=== PATIENT | female | born 1985 | race Caucasian/White ===

== ENCOUNTER 2019-07-13 13:43 | Emergency (ER) | payer MEDICAID, OTHER ==
--- NOTE | 2019-07-13 14:12 | NUR ---
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
[2019-07-13] MEDS ORDERED: SODIUM CHLORIDE FLUSH 10ML SYR IVF ONE (15:00)
[2019-07-13 15:02] LABS: BASOPHILS # (AUTO) 0.08 x10^3/uL (0-0.1); BASOPHILS % (AUTO) 1 % (0-1); EOSINOPHILS # (AUTO) 0.12 x10^3/uL (0-0.4); EOSINOPHILS % (AUTO) 1 % (1-7); LYMPHOCYTES # (AUTO) 1.18 x10^3/uL (1-3.4); LYMPHOCYTES % (AUTO) 10 % (22-44); MD NO; MEAN CORPUSCULAR HEMOGLOBIN 29.6 pg (27.0-34.8); MEAN CORPUSCULAR HGB CONC 33.7 g/dL (32.4-35.8); MEAN CORPUSCULAR VOLUME 87.9 fL (80-100); MEAN PLATELET VOLUME 8.9 fL (7.4-10.4); MONOCYTES # (AUTO) 0.58 x10^3/uL (0.2-0.8); MONOCYTES % (AUTO) 5 % (2-9); NEUTROPHILS # (AUTO) 10.25 x10^3/uL (1.8-6.8); NEUTROPHILS % (AUTO) 84 % (42-75); PLATELET COUNT 275 x10^3/uL (130-400); RED BLOOD COUNT 5.08 x10^6/uL (3.82-5.3); RED CELL DISTRIBUTION WIDTH 13.5 % (9.6-15.2)
[2019-07-13 15:14] LABS: ALBUMIN 3.6 g/dL (3.4-5.0); ANION GAP 16 mmol/L (5-15); CALCIUM 8.7 mg/dL (8.5-10.1); CHLORIDE 103 mmol/L (98-107); CREATININE 0.88 mg/dL (0.55-1.02)
--- NOTE | 2019-07-13 15:28 | NUR ---
PIV INITIATED, PT TO GO TO CT.
[2019-07-13] MEDS ORDERED: LIDOCAINE 1%-EPI 1:100K, 20ML ONE (16:29)
[2019-07-13] MEDS ORDERED: AMOXICILLIN/CLAV 875-125MG TABLET PO STA (17:03)
[2019-07-13] MEDS ORDERED: ONDANSETRON ODT 4 MG ONE (17:11)
[2019-07-13] MEDS ORDERED: AMOXICILLIN/CLAV 875-125MG TABLET ONE (17:11)
[2019-07-13 17:27] VITALS: BP 119/75
[2019-07-13] MEDS ORDERED: PLEASE ENTER WEIGHT MC SCH (17:30)
[2019-07-13] MEDS ORDERED: ONDANSETRON ODT 4 MG PO ONE (17:30)
== END 2019-07-13 18:29 | disposition home or self-care (01) ==
LOC: ED 14:23
DX: J36 Peritonsillar abscess (principal); H92.01 Otalgia, right ear; E11.9 Type 2 diabetes mellitus without complications
CPT/HCPCS: 36415; 42700; 70491; 80048; 82040; 85025; 99285

== ENCOUNTER → 2020-02-13 | Outpatient (CLI) | payer OTHER ==
[2020-02-13 09:26] LABS: BASOPHILS % (AUTO) 1 % (0-1); EOSINOPHILS % (AUTO) 2 % (1-7); LYMPHOCYTES % (AUTO) 26 % (22-44); MEAN CORPUSCULAR HEMOGLOBIN 29.2 pg (27.0-34.8); MEAN CORPUSCULAR HGB CONC 32.5 g/dL (32.4-35.8); MEAN PLATELET VOLUME 9.1 fL (7.4-10.4); MONOCYTES % (AUTO) 6 % (2-9); NEUTROPHILS % (AUTO) 64 % (42-75); PLATELET COUNT 240 x10^3/uL (130-400); RED BLOOD COUNT 4.99 x10^6/uL (3.82-5.3); RED CELL DISTRIBUTION WIDTH 12.5 % (9.6-15.2)
[2020-02-13 09:29] LABS: MD NO
[2020-02-13 10:08] LABS: ALBUMIN 3.8 g/dL (3.4-5.0)
[2020-02-13 10:18] LABS: ALKALINE PHOSPHATASE 124 U/L (45-117); ANION GAP 14 mmol/L (5-15); CHLORIDE 108 mmol/L (98-107); CHOL/HDL RATIO 2.9; CHOLESTEROL, TOTAL 196 mg/dL (140-239); CREATININE 0.59 mg/dL (0.55-1.02); HDL CHOL % 35 % (28-40); HDL CHOLESTEROL (DIRECT) 68 mg/dL (40-60); TOTAL PROTEIN 7.6 g/dL (6.4-8.2)
[2020-02-13 10:42] LABS: ALANINE AMINOTRANSFERASE 17 U/L (12-78); BILIRUBIN,TOTAL 0.4 mg/dL (0.2-1.0); FREE T4 (FREE THYROXINE) 1.27 ng/dL (0.76-1.46); LDL CHOLESTEROL,CALCULATED 111 mg/dL (54-169); LDL/HDL RATIO 1.6 (0.5-3.0); TRIGLYCERIDES 86 mg/dL (50-200); VLDL CHOLESTEROL 17 mg/dL (0-25)
== END | disposition home or self-care (01) ==
LOC: LAB 09:04
PROVIDERS: ATTEND Nurse Practitioner Family
DX: Z00.00 Encounter for general adult medical examination without abnormal findings (principal); E28.2 Polycystic ovarian syndrome; H93.19 Tinnitus, unspecified ear; K59.09 Other constipation; K92.1 Melena; R13.11 Dysphagia, oral phase; R42 Dizziness and giddiness; R73.09 Other abnormal glucose
CPT/HCPCS: 36415; 80053; 80061; 82670; 83001; 83002; 83036; 84439; 84443; 85025

== ENCOUNTER 2020-11-22 07:39 | Outpatient (CLI) | payer OTHER ==
[2020-11-22 07:54] LABS: BASOPHILS % (AUTO) 1 % (0-1); EOSINOPHILS % (AUTO) 5 % (1-7); LYMPHOCYTES % (AUTO) 42 % (22-44); MEAN CORPUSCULAR HEMOGLOBIN 28.6 pg (27.0-34.8); MEAN CORPUSCULAR HGB CONC 33.4 g/dL (32.4-35.8); MEAN PLATELET VOLUME 8.3 fL (7.4-10.4); MONOCYTES % (AUTO) 8 % (2-9); NEUTROPHILS % (AUTO) 45 % (42-75); PLATELET COUNT 254 x10^3/uL (130-400); RED BLOOD COUNT 4.73 x10^6/uL (3.82-5.3); RED CELL DISTRIBUTION WIDTH 12.6 % (9.6-15.2)
[2020-11-22 08:07] LABS: ALANINE AMINOTRANSFERASE 19 U/L (12-78); ALBUMIN 3.7 g/dL (3.4-5.0); ANION GAP 5 mmol/L (5-15); CALCIUM 8.8 mg/dL (8.5-10.1); CHLORIDE 103 mmol/L (98-107); CREATININE 0.59 mg/dL (0.55-1.02)
[2020-11-22 08:09] LABS: ALKALINE PHOSPHATASE 98 U/L (45-117); BILIRUBIN,TOTAL 0.3 mg/dL (0.2-1.0); TOTAL PROTEIN 7.4 g/dL (6.4-8.2)
== END 2020-11-22 23:59 | disposition home or self-care (01) ==
LOC: LAB 07:39
PROVIDERS: ATTEND Registered Nurse Medical-Surgical
DX: E11.9 Type 2 diabetes mellitus without complications (principal)
CPT/HCPCS: 36415; 80053; 83036; 85025

== ENCOUNTER 2020-12-05 07:20 | Emergency (ER) | payer OTHER ==
[~2020-12-05] VITALS: Ht 162.6 cm; Wt 67.7 kg
--- NOTE | 2020-12-05 08:56 | NUR ---
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
--- NOTE | 2020-12-05 09:13 | NUR ---
PT AMBULATORY TO ROOM 34 W/ C/O SOB, NAUSEA, AND GEN MALAISE STARTED TODAY AT 0200. PT STATES SHE WAS HAVING TROUB;LE CATCHING HER BREATHE EARLY THIS AM. PT STATES SHE WAS EXPOSED TO COVID FROM A PATIENT AT WORK LAST WEEK. PT STATES SHE IS HERE FOR A COVID TEST AND CXR. PT RESTING ON GURNEY. NADN. MONITORS APPLIED. VSS. WARM BLANKET PROVIDED. CALL LIGHT IN REACH.
[2020-12-05 09:46] LABS: MICROSCOPIC NOT IND
[2020-12-05 10:06] VITALS: BP 109/66
--- NOTE | 2020-12-05 10:06 | NUR ---
PT RESTING ON GURNEY. NADN. GALVEZ.
[2020-12-05 10:14] LABS: RAPID INFLUENZA A Negative (Negative); RAPID INFLUENZA B Negative (Negative)
--- NOTE | 2020-12-05 10:28 | NUR ---
PER ERP DR. CABRERA NO NEED FOR CXR AT THIS TIME.
== END 2020-12-05 11:02 | disposition home or self-care (01) ==
LOC: ED 08:24
DX: M54.5 Low back pain (principal); Z20.822 Contact with and (suspected) exposure to COVID-19; M79.10 Myalgia, unspecified site; J02.9 Acute pharyngitis, unspecified; R51.9 Headache, unspecified; R94.31 Abnormal electrocardiogram [ECG] [EKG]; E11.9 Type 2 diabetes mellitus without complications; F17.200 Nicotine dependence, unspecified, uncomplicated
CPT/HCPCS: 81003; 87400; 93005; 99284; U0003; U0005